=== PATIENT | male | born 1980 | race Hispanic/Latino ===

== ENCOUNTER 2018-01-02 09:25 | Day surgery (SDC) | payer OTHER ==
[~2018-01-02] VITALS: Ht 172.7 cm; Wt 95.6 kg
[~2018-01-02 09:25] MED LIST: SODIUM CHLORIDE 0.9% 1000ML 1,000 ML IV ONE
[2018-01-02 11:11] VITALS: BP 138/79
[2018-01-02] MEDS ORDERED: ONDA4TAB4 PO (11:26)
[2018-01-02] MEDS ORDERED: PANT20TA12 PO (11:26)
[2018-01-02] MEDS ORDERED: HYDR30CR77 RC (11:26)
[2018-01-02] MEDS ORDERED: ALPR0.5T PO (11:26)
== END 2018-01-02 12:40 | disposition home or self-care (01) ==
LOC: DAH 09:25 → ENDO 09:25
PROVIDERS: ATTEND Internal Medicine
DX: K29.50 Unspecified chronic gastritis without bleeding (principal); K31.89 Other diseases of stomach and duodenum; Z68.33 Body mass index [BMI] 33.0-33.9, adult; K21.9 Gastro-esophageal reflux disease without esophagitis; K85.90 Acute pancreatitis without necrosis or infection, unspecified; Z79.899 Other long term (current) drug therapy; F41.9 Anxiety disorder, unspecified; K76.0 Fatty (change of) liver, not elsewhere classified
CPT/HCPCS: 43237; 43239; A4606; J7030; 43231